=== PATIENT | female | born 1995 | race Caucasian/White ===

== ENCOUNTER → 2019-07-03 08:08 | Outpatient (CLI) | payer OTHER, SELFPAY ==
--- NOTE | 2019-07-03 08:12 | RAD_ITS ---
STUDY: X-RAY - ESOPHAGUS (BARIUM SWALLOW) WITH FLUOROSCOPY REASON FOR EXAM: Female, 24 years old. Chronic reflux. TECHNIQUE: 11 view(s) of the esophagus were obtained following swallowing of barium. FLUOROSCOPY TIME (if supplied): (0:25) minutes/seconds COMPARISON: None. FINDINGS: There is no demonstrated esophageal foreign body. There is no demonstrated stricture or mucosal abnormality. Normal gastroesophageal junction, without a demonstrated hiatal hernia. The patient ingested a 12 mm tablet of barium without any difficulty. Normal visualized aortic arch and descending thoracic aorta. Normal visualized pulmonary parenchyma. Normal visualized osseous structures of the thorax. RAD/Esophagus Only IMPRESSION: Normal plain film x-ray examination (barium swallow) of the esophagus. Electronically Signed: Noah De Leon, at 15:22 EST , Service support ,
== END ==
PROVIDERS: Referring Provider Internal Medicine Gastroenterology; Visit Provider Internal Medicine Gastroenterology
DX: R13.10 Dysphagia, unspecified (principal)
CPT/HCPCS: 74220

== ENCOUNTER 2022-05-07 09:09 | Emergency (ER) | payer OTHER, SELFPAY ==
[2022-05-07 09:10] VITALS: BP 98/65; PULSE 74; RESP 14; TEMP 36.7; O2SAT 100; BMI 20.3
--- NOTE | 2022-05-07 09:43 | CT_ITS ---
STUDY: CT ABDOMEN AND PELVIS WITH CONTRAST REASON FOR EXAM: Female, 27 years old. Left sided abdominal pain, nausea. RADIATION DOSAGE (If Supplied By Facility): CTDIvol = ( 9.33 ) mGy, DLP = ( 249.35 ) mGycm TECHNIQUE: Transaxial images were obtained from the dome of the diaphragm to the symphysis pubis without oral contrast. IV 75mL Isovue-370 was administered. Sagittal and coronal images were reconstructed. Individualized dose optimization techniques were used for this CT. COMPARISON: None. FINDINGS: The visualized lung bases are unremarkable. The visualized portions of the heart are within normal limits. Normal liver. Normal gallbladder and extrahepatic biliary system. Normal spleen. Normal pancreas. Normal bilateral adrenal glands. Normal right kidney. Normal left kidney. Normal visualized stomach. Normal small intestine. There are scattered colonic diverticula consistent with diverticulosis. The appendix is visualized and appears normal. Normal abdominal aorta. Normal inferior vena cava. Normal retroperitoneum. Normal urinary bladder. Small amount of free fluid is seen in the cul-de-sac. There is a 2.1 cm x 1.1 cm cyst in the left ovary. This may represent a ruptured left ovarian cyst. Follicles are seen in the right ovary. Normal abdominal wall. Normal osseous structures. CT/Abdomen/Pelvis W IV Cont ONLY IMPRESSION: Findings suggestive of a ruptured left ovarian cyst with free fluid in the cul-de-sac. Electronically Signed: Noah De Leon MD at 10:42 EDT ,
--- NOTE | 2022-05-07 09:44 | EDS_ITS ---
HPI HPI - GI History of Present Illness Chief Complaint: Abd Pain Detail of Chief Complaint: Left upper quadrant abdominal pain Informant: patient and spouse/S.O. Abdominal Pain/Flank Pain Onset: Days Context: Gradual Onset Timing: Intermittent Quality: Aching Location: LUQ Current Severity: Mild Maximum Severity: Moderate Worsened by: Car ride Relieved by: Nothing Nausea/Vomiting/Emesis GI Symptom: Positive for Nausea; Negative for Vomiting Onset: Today Severity: Mild Diarrhea/Melena/Hematochezia GI Symptom: Negative for Diarrhea, Melena or Hematochezia Associated Symptoms Associated Symptoms: Negative for Dysuria, Frequency or Hematuria Narrative Narrative: 27-year-old female past medical history of Lyme disease and toxoplasmosis. States last Saturday she had intermittent left upper quadrant abdominal pain that resolved on returned on Saturday. On Saturday she had some chills and nausea but no vomiting or diarrhea. No constipation. No dysuria. No abdominal trauma. No prior abdominal surgery. Last bowel movement was today. No melena. She denies any weight change. Nothing particularly makes the pain better. Prior similar symptoms: No Recent Illness/Hospitalization: No PFSH PFSH Medical History Lyme disease Allergy/AdvReac Type Severity Reaction Status Date / Time No Known Allergies Allergy Verified 05/07/22 09:12 Social History Smoking Status: Never smoker ROS ROS ED ROS Narrative Abdominal pain. Prior nausea. Review of Systems ROS Unobtainable: Denies due to encephalopathy Constitutional Constitutional ED: Denies chills or fever(s) ENT ENT ED: Denies ear pain Cardiovascular Cardiovascular: Denies chest pain Respiratory/Chest Respiratory/Chest: Denies cough or dyspnea Gastrointestinal Gastrointestinal: Reports abdominal pain and nausea; Denies constipation, diarrhea, melena or vomiting Genitourinary Genitourinary ED: Reports LMP (females 10-50) Details: Comment: (Last menstrual period around 04-26-2022); Denies dysuria or hematuria Musculoskeletal Musculoskeletal: Denies arthralgias Integumentary Denies abscess Neurologic Neurologic: Denies headache(s) Psychiatric Psychiatric: Denies anxiety Endocrine Endocrinology: Denies polydipsia Allergic/Immunologic Allergic/Immunologic ED: Denies mouth swelling EXAM Physical Exam Narrative Exam Narrative: 19-year-old female no acute distress. Vital signs stable afebrile. Her blood pressure is only 98/65 but she is a small thin woman. HEENT exam unremarkable. Moist Riis membranes. Neck nontender no lymphadenopathy. Lungs clear to auscultation. Heart regular rhythm rate about 74 no murmur. Abdomen soft nondistended normal bowel sounds no peritoneal signs. Mild left upper quadrant tenderness. No organomegaly or masses. No signs of trauma. No distention or hernia. No obstruction. Right upper or right lower quadrant unremarkable. Moving all 4 extremities. Nontender no edema. Back nontender. Neurologically she is awake and alert with no focal motor deficits. Benign exam. Const Vital Signs: 05/07/22 09:10 Temperature 98.0 F Temperature Source Temporal Pulse Rate 74 Respiratory Rate 14 Blood Pressure 98/65 Blood Pressure Mean 76 Pulse Ox 100 Oxygen Delivery Method Room Air Positive well nourished and well developed; Negative for obese, cachectic, contractures or unkempt General Appearance ED: well developed and NAD; Negative for unkempt, cachectic, contractures or pallor Nutritional Appearance: Negative for cachectic or obese HEENT Reports moist mucous membranes normocephalic and atraumatic; Negative for trauma or tenderness Eyes PERRL and EOMs intact bilaterally General Eye ED: Negative for pale conjunctiva or scleral icterus Neck no lymphadenopathy, supple and no JVD General: Negative for tenderness Carotids: Negative for other Lymph Lymphatic: Negative for other Resp normal respiratory effort and clear to auscultation bilaterally Effort and Inspection: Negative for respiratory distress or retractions Auscultation: Negative for rales, rhonchi or wheezes Cardio regular rate, regular rhythm, S1 normal heart sound, S2 normal heart sound and no murmurs Rate: Negative for bradycardia Rhythm: Negative for abnormal rhythm GI non-tender, non-distended and no masses Inspection: Negative for abdominal distention Auscultation: normoactive bowel sounds Palpation: soft and tender; Negative for guarding, rigid, hepatomegaly, splenomegaly, hernia, mass, pulsatile mass or rebound tenderness present Back/Spine no CVA tenderness General Back: Negative for CVA tenderness Cervical Spine: Negative for cervical spine tenderness Thoracic Spine / Upper Back: Negative for thoracic spinal tenderness Lumbar Spine / Lower Back: Negative for lumbar spinal tenderness Extremity full ROM General Extremety ED: Negative for edema or tenderness General Extremity: Negative for edema Neuro CN's II-XII intact bilaterally and moves all extremities Sensorium / Orientation: alert, oriented to person, oriented to place and oriented to time; Negative for orientation impaired, confused, lethargic or stuporous Motor Exam: strength 5/5 throughout Psych mental status grossly normal and thought process normal Appearance: Negative for unkempt Attitude: No agitated Mood & Affect: Negative for depressed Skin No no wounds General Skin Exam: Negative for jaundice or pallor Lesions: no lesions Rashes: no rashes Trauma: Negative for abrasion Nails: Negative for discolored MDM MDM MDM Narrative Medical decision making narrative: 27-year-old female left upper quadrant abdominal pain. Clinically this may be gastritis or reflux. She has a benign exam. Was only mild tenderness. She is currently not nauseated. This may be gastritis. She will be treated with Protonix. Screening labs. wants imaging done. CAT scan of the obt ained. Repeat exam patient is doing well at 11:05 AM. We went over all of her test results of both her and her . I explained to them the only thing shown is a small ruptured ovarian cyst which may or may not be the cause of her pain and could also be secondary to gastritis since the pain is in her left upper quadrant. She will be discharged to home. Tylenol for pain. Protonix for poss ible gastritis. Lab Data Attestation: I reviewed the patient's lab results. Lab results narrative: CBC unremarkable white count of 4.3. H&H 13.5 and 40. Urine clean. No white or red cells. No bacteria. No nitrites. Chemistry is normal. Gap is 6. Normal BUN and creatinine. Liver enzymes unremarkable AST slightly elevated 57 ALT at 97. Lipase normal at 92. Serum test negative. CAT scan showed a small left ovarian cyst with fluid. Possibly a ruptured ovarian cyst. Otherwise no acute process. Labs: Laboratory Results - last 24 hr 05/07/22 05/07/22 05/07/22 09:30 09:30 09:30 WBC 4.2 L RBC 4.39 Hgb 13.5 Hct 40.2 MCV 91.6 MCH 30.8 MCHC 33.6 RDW Std Deviation 44.1 H RDW Coeff of [place] 13.1 Plt Count 234 MPV 9.1 Immature Gran % (Auto) 0.500 Neut % (Auto) 51.0 Lymph % (Auto) 39.5 Lucas % (Auto) 7.6 Eos % (Auto) 0.7 Baso % (Auto) 0.7 Absolute Neuts (auto) 2.2 Absolute Lymphs (auto) 1.67 Nucleated RBC % 0 Sodium 138 Potassium 3.7 Chloride 105 Carbon Dioxide 27.0 Anion Gap 6 BUN 9 Creatinine 0.70 Estim Creat Clear Calc 98.53 Est GFR (MDRD) Af Amer 128 Est GFR (MDRD) Non-Af 106 BUN/Creatinine Ratio 12.8 Glucose 90 Calcium 9.2 Total Bilirubin 0.60 AST 57 H ALT 97 H Alkaline Phosphatase 46 Total Protein 8.0 Albumin 4.3 Globulin 3.7 Albumin/Globulin Ratio 1.2 Lipase 92 Serum , Qual Urine Color Yellow Urine Clarity Clear Urine pH 7.0 Ur Specific [place] 1.010 Urine Protein Negative Urine Glucose (UA) Normal Urine Ketones Negative Urine Occult Blood Negative Urine Nitrite Negative Urine Bilirubin Negative Urine Urobilinogen Normal Ur Leukocyte Esterase Negative Urine RBC 0 SEEN Urine WBC 0 SEEN Ur Squamous Epith Cells 0-5 SEEN Urine Bacteria 0 SEEN Urine Mucus 0 SEEN 05/07/22 10:20 WBC RBC Hgb Hct MCV MCH MCHC RDW Std Deviation RDW Coeff of [place] Plt Count MPV Immature Gran % (Auto) Neut % (Auto) Lymph % (Auto) Lucas % (Auto) Eos % (Auto) Baso % (Auto) Absolute Neuts (auto) Absolute Lymphs (auto) Nucleated RBC % Sodium Potassium Chloride Carbon Dioxide Anion Gap BUN Creatinine Estim Creat Clear Calc Est GFR (MDRD) Af Amer Est GFR (MDRD) Non-Af BUN/Creatinine Ratio Glucose Calcium Total Bilirubin AST ALT Alkaline Phosphatase Total Protein Albumin Globulin Albumin/Globulin Ratio Lipase Serum , Qual NEGATIVE Urine Color Urine Clarity Urine pH Ur Specific [place] Urine Protein Urine Glucose (UA) Urine Ketones Urine Occult Blood Urine Nitrite Urine Bilirubin Urine Urobilinogen Ur Leukocyte Esterase Urine RBC Urine WBC Ur Squamous Epith Cells Urine Bacteria Urine Mucus Radiography Diagnostic Testing: Clinical Impression(s) from Imaging Studies Abdomen/Pelvis CT 05/07/22 09:43 IMPRESSION: Findings suggestive of a ruptured left ovarian cyst with free fluid in the cul-de-sac. Electronically Signed: Noah De Leon MD at 10:42 EDT , Discharge Plan Triage Chief Complaint: Abd Pain ED Provider: Tani Askew Dx/Rx/DC Orders Clinical Impression: Abdominal pain, Ovarian cyst, Gastritis Instructions: Abdominal Pain Primary Care Provider: NOT,DEFINED Referrals: Will Dias MD [Med Staff - [employer]er] - 1 Week if not improving NOT,DEFINED [Primary Care Provider] - Activity Restrictions/Additional Instructions: The pain may be due to 1 of 2 things. You do have a small left ovarian cyst which will resolve. That may or may not have caused the pain. It could also be secondary to inflammation in your stomach called gastritis. The ovarian cyst pain can be treated with Tylenol and/or Motrin. For possible gastritis you could use Tums or [id number] Prilosec or Pepcid or Protonix. Follow-up with your doctor if not improving. Disposition Disposition: Home, Self Care
[2022-05-07 09:57] LABS: Bacteria 0 SEEN /hpf (None Seen); Mucous, Urine 0 SEEN /hpf (<or=2+); Red Blood Cells-Urine 0 SEEN /hpf (0-5); White Blood Cells 0 SEEN /hpf (0-5)
[2022-05-07 10:00] LABS: Color, Urine Yellow (Yellow); Glucose, Dipstick Normal (Normal); Ketone-Dipstick Negative (Negative); Leukocyte Esterase-Dipstick Negative /ul (Negative); Nitrite-Dipstick Negative (Negative); Occult Blood-Urine Negative /ul (Negative); Protein-Dipstick Negative (Negative); Urine Bilirubin Dipstick Negative (Negative); Urine Clarity Clear (Clear); Urine Urobilinogen Normal (Normal)
[2022-05-07 10:03] LABS: Absolute Lymphocyte Count 1.67 X10^3/uL (0.83-4.51); Absolute Neutrophil Count 2.2 X10^3/uL (2.0-7.7); Basophil# 0.03 X10^3/uL; Basophil% 0.7 % (0-1); Eosinophil# 0.03 X10^3/uL; Eosinophils% 0.7 % (0-5); Hematocrit 40.2 % (37-47); Hemoglobin 13.5 g/dL (12.0-15.0); Lymphocyte # 1.67 X10^3/ul (0.83-4.51); Lymphocyte % 39.5 % (19-41); Mean Corp Hgb Conc 33.6 g/dL (32-36); Mean Corpuscular Hgb 30.8 pg (27.0-32.0); Mean Corpuscular Volume 91.6 fL (81-99); Mean Platelet Vol. 9.1 fl (6.2-12.0); Monocyte# 0.32 X10^3/uL; Monocyte% 7.6 % (0-10); NRBC Flagged by Analyzer 0 % (0-5); Neutrophil # 2.16 X10^3/uL (2.7-7.7); Platelet Count 234 K/mm3 (150-450); RBC Distribution Width CV 13.1 % (11.6-14.6); RBC Distribution Width SD 44.1 fl (35.1-43.9); Red Blood Count 4.39 M/mm3 (4.2-5.4); White Blood Count 4.2 K/mm3 (4.4-11.0)
[2022-05-07] MEDS: Mag Hydrox/Al Hydrox/Simeth 30 ML UDC PO (10:08)
[2022-05-07] MEDS: 0.9% Normal Saline 1,000 ML 1000 ML IV (10:08)
[2022-05-07 10:10] LABS: Squamous Epithelial Cells - UA 0-5 SEEN /hpf (5-10)
[2022-05-07 10:23] LABS: ALB/GLOB Ratio 1.2 RATIO (0.9-2.4); AST(SGOT) 57 U/L (15-37); Alanine Aminotransfer ALT/SGPT 97 U/L (13-56); Albumin, Serum 4.3 g/dL (3.2-5.0); Alkaline Phosphatase 46 U/L (45-117); Anion Gap 6 (5-15); BUN 9 mg/dL (7-18); BUN/Creat Ratio 12.8 RATIO (10-20); Calcium,Total 9.2 mg/dL (8.5-10.1); Chloride 105 mmol/L (98-107); EST Glomerular Filtration Rate 106 mL/min (>60); Est Glom Filt Rate - Afr Amer 128 mL/min (>60); Estimated Creatinine Clearance 98.53 ml/min; Globulin 3.7 g/dL (2.2-4.2); Glucose 90 mg/dL (74-106); Lipase 92 U/L (73-393); Potassium 3.7 mmol/L (3.5-5.1); Sodium Level 138 mmol/L (136-145)
[2022-05-07 10:49] LABS: Internal QC Validated? YES +Cl - CLEAR BKGD; Pregnancy, Serum, hCG Quali. NEGATIVE Negative
== END 2022-05-07 11:31 | disposition home or self-care (01) ==
LOC: ED 11:27
PROVIDERS: Emergency Provider Emergency Medicine; Visit Provider Emergency Medicine
DX: N83.202 Unspecified ovarian cyst, left side (principal); K29.70 Gastritis, unspecified, without bleeding
CPT/HCPCS: 74177; 80053; 81001; 83690; 84703; 85025; 96365; 99283; J7030; Q9967; A4216

== ENCOUNTER → 2024-09-15 | Outpatient (CLI) | payer SELFPAY | END | disposition home or self-care (01) | DX: D50.9 Iron deficiency anemia, unspecified (principal); D84.9 Immunodeficiency, unspecified | CPT/HCPCS: 36415 ==

== ENCOUNTER → 2024-12-15 | Outpatient (CLI) | payer SELFPAY | END | disposition home or self-care (01) | LOC: LAB 09:49 | DX: D84.9 Immunodeficiency, unspecified (principal); D50.9 Iron deficiency anemia, unspecified ==

== ENCOUNTER → 2025-03-02 | Outpatient (CLI) | payer SELFPAY | END | disposition home or self-care (01) | LOC: LAB 10:47 | DX: D50.9 Iron deficiency anemia, unspecified (principal); D84.9 Immunodeficiency, unspecified | CPT/HCPCS: 36415 ==